=== PATIENT | female | born 1980 | race Caucasian/White ===

== ENCOUNTER → 2020-04-04 10:45 | Outpatient (BNVA) | payer OTHER, SELFPAY | PROVIDERS: Family Provider Family Medicine; PCP Family Medicine; Visit Provider Family Medicine | DX: E03.9 Hypothyroidism, unspecified (principal); R19.4 Change in bowel habit | CPT/HCPCS: 80053; 84443; 85025 ==

== ENCOUNTER 2020-04-30 07:46 | Day surgery (SDC) | payer OTHER, SELFPAY ==
[2020-04-28 16:20] LABS: Coronavirus Lab Test PTC Negative
[2020-04-30 08:00] VITALS: BP 125/87; PULSE 108; RESP 18; TEMP 36.4; O2SAT 98
[2020-04-30] MEDS: sodium chloride 0.9% 1,000 ML 30 ML IV (08:16)
--- NOTE | 2020-04-30 08:19 | ANES.PREANE2 ---
Pre-Anesthetic Assessment Pre-Anesthetic Assessment: Height/Weight: Height 1.52 m Weight 77.111 kg Temp Pulse Resp BP Pulse Ox 97.5 F L 108 H 18 125/87 98 04/30/20 08:00 04/30/20 08:00 04/30/20 08:00 04/30/20 08:00 04/30/20 08:00 Preop Diagnosis: diarrhea Proposed Procedure: Operation Date: 04/30/20 08:45 Proposed Procedures p Colonoscopy 36965 R19.4(Not Applicable) - Aung Walker MD Familial anesthetic complications: none Last intake: Intake Last Liquid Date 04/29/20 Last Liquid Time 20:00 Last Solid Date 04/28/20 Social: Social History: No alcohol and No tobacco Exam: Pre-Anes Outpt Exam: alert, oriented x 3, clear to auscultation bilaterally and regular rate & rhythm Airway: Cervical ROM: WNL MP: 3 Dentition: Full CV/HEM: CV/HEM: 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 Orders Orders: VP04/04/20 Thyroid Stimulating Znhmgwo61/06/20 Comprehensive Metabolic Panel04/04/20 Complete Blood Count w/Auto04/04/20 Surgical History H/O tubal ligation Family History Other CAD (coronary artery disease) Diabetes Thyroid condition Social History Smoking and tobacco status: never smoked Alcohol intake: never Data Anesthesia Other Labs: Laboratory Results - last 48 hr 04/26/20 13:27 Nasal/Oral COVID-19 PCR Negative Cardiac Studies: No Data to Display
--- NOTE | 2020-04-30 09:11 | W.PM.OPSUD ---
Surgery/Procedure H&P Update DATE OF PROCEDURE: April 30, 2020 DATE H&P PERFORMED: 04/22/20 H&P UPDATE INFORMATION: I have reviewed H&P completed within last 30 days, I have examined patient prior to procedure and No changes to prior documentation PREOP DIAGNOSIS: diarrhea PLANNED PROCEDURE: Operation Date: 04/30/20 08:45 Proposed Procedures p Colonoscopy 29509 R19.4(Not Applicable) - Aung Walker MD
[2020-04-30 09:38] VITALS: BP 103/69; PULSE 83; RESP 16; TEMP 36.8; O2SAT 100
--- NOTE | 2020-04-30 09:41 | ANE.PACU2 ---
Inpatient post-anesthesia follow up: Airway intact: Yes Vital signs: Temperature 97.5 F Pulse Rate 108 Respiratory Rate 18 Blood Pressure 125/87 Pulse Oximetry 98 Oxygen Delivery Me thod Room Air Oxygen Flow Rate Fraction of Inspir ed Oxygen Hydration adequate: Yes Nausea and vomiting: No Mental status: Baseline
== END 2020-04-30 10:10 | disposition home or self-care (01) ==
PROVIDERS: PCP Family Medicine; Visit Provider Surgery
PROC: 0DJD8ZZ Inspection of Lower Intestinal Tract, Via Natural or Artificial Opening Endoscopic (ICD-10-PCS; CPT 45378; principal; 2020-04-30 08:45)
DX: R19.4 Change in bowel habit (principal); K52.9 Noninfective gastroenteritis and colitis, unspecified; R01.1 Cardiac murmur, unspecified; E03.9 Hypothyroidism, unspecified
CPT/HCPCS: 12345; 45380; 82274; 83630; 87046; 87328; 87329; 87493; 87635; 88305; J2704; J7030

== ENCOUNTER → 2020-12-02 08:13 | Outpatient (BNVA) | payer OTHER, SELFPAY | PROVIDERS: PCP Family Medicine; Visit Provider Family Medicine | DX: E03.9 Hypothyroidism, unspecified (principal) | CPT/HCPCS: 84443 ==

== ENCOUNTER → 2021-06-02 08:59 | Outpatient (BNVA) | payer OTHER, SELFPAY | PROVIDERS: PCP Family Medicine; Visit Provider Family Medicine | DX: E03.9 Hypothyroidism, unspecified (principal); Z12.31 Encounter for screening mammogram for malignant neoplasm of breast; Z13.6 Encounter for screening for cardiovascular disorders | CPT/HCPCS: 80053; 80061; 84443; 85025 ==

== ENCOUNTER 2021-07-28 14:52 | Outpatient (CLI) | payer OTHER, SELFPAY ==
--- NOTE | 2021-07-28 15:00 | MM_ITS ---
WS: [id number] . BILATERAL DIGITAL SCREENING MAMMOGRAPHY WITH CAD CLINICAL INFORMATION: screening mammogram HISTORY: Screening mammogram. No current complaints. COMPARISON: None. TECHNIQUE: Bilateral CC and MLO views. FINDINGS: The breasts are composed of heterogeneous fibroglandular density tissue, which can limit the detectio n of small underlying mass lesions. Dense nodular breast tissue bilaterally. No suspicious mass, asym metry, calcifications, or architectural distortion. No evidence of malignancy. MM/[place] [id number] IMPRESSION: BI-RADS: 2-Benign FOLLOW UP: 1 Year Follow-up Recommend return to annual screening mammography.
== END 2021-07-28 14:53 | disposition home or self-care (01) ==
LOC: RADSHAW 14:55
PROVIDERS: PCP Family Medicine; Visit Provider Family Medicine
DX: Z12.31 Encounter for screening mammogram for malignant neoplasm of breast (principal)
CPT/HCPCS: 77067

== ENCOUNTER → 2022-06-09 10:21 | Outpatient (BNVA) | payer OTHER, SELFPAY | PROVIDERS: Visit Provider Family Medicine | DX: E03.9 Hypothyroidism, unspecified (principal) | CPT/HCPCS: 84443 ==

== ENCOUNTER → 2023-10-08 09:44 | Outpatient (BNVA) | payer OTHER, SELFPAY | PROVIDERS: PCP Family Medicine; Visit Provider Family Medicine | DX: Z13.6 Encounter for screening for cardiovascular disorders (principal); E03.9 Hypothyroidism, unspecified | CPT/HCPCS: 80053; 80061; 84443; 85025 ==

== ENCOUNTER 2023-10-29 08:38 | Outpatient (CLI) | payer OTHER, SELFPAY ==
--- NOTE | 2023-10-29 08:41 | MM_ITS ---
WS: [id number] BILATERAL SCREENING DIGITAL TOMOSYNTHESIS MAMMOGRAM WITH CAD HISTORY: screening COMPARISON: 07/28/2021 Bilateral CC and MLO views with tomosynthesis and synthetic mammography submitted. Computer aided det ection analyzed. Breast composition: The breasts are heterogeneously dense, which may obscure small masses. No suspici ous masses, microcalcifications or architectural distortion. IMPRESSION: MM/[place] [id number] BI-RADS: 1-Negative FOLLOW UP: 1 Year Follow-up
== END 2023-10-29 08:39 | disposition home or self-care (01) ==
LOC: RAD 08:38
PROVIDERS: PCP Family Medicine; Visit Provider Family Medicine
DX: Z12.31 Encounter for screening mammogram for malignant neoplasm of breast (principal)
CPT/HCPCS: 77063; 77067

== ENCOUNTER → 2023-12-31 10:40 | Outpatient (BNVA) | payer OTHER, SELFPAY | PROVIDERS: PCP Family Medicine; Visit Provider Family Medicine | DX: D50.9 Iron deficiency anemia, unspecified (principal); N92.0 Excessive and frequent menstruation with regular cycle | CPT/HCPCS: 82728; 83550; 85025 ==

== ENCOUNTER → 2024-01-07 11:02 | Outpatient (BNVA) | payer OTHER, SELFPAY | PROVIDERS: PCP Family Medicine; Visit Provider Family Medicine | DX: Z01.419 Encounter for gynecological examination (general) (routine) without abnormal findings (principal) | CPT/HCPCS: 87624 ==

== ENCOUNTER 2024-01-18 07:26 | Outpatient (CLI) | payer OTHER, SELFPAY ==
--- NOTE | 2024-01-18 07:45 | US_ITS ---
WS: [id number] US transvaginal [id number] HISTORY: menorrhagia COMPARISON: None available. Uterus: 8.0 cm x 5.5 cm x 4.9 cm. Anteverted uterus. No mass identified. The myometrium is not well visualized due to technique. Endometrium: 1.8 cm. Enlarged mildly heterogeneous endometrium. The junctional zone is poorly visuali zed. This is probably technical. No increased vascularity. Right ovary: 3.0 cm x 1.5 cm x 2.7 cm. Small follicles. Normal vascularity. Left ovary: 2.8 cm x 3.5 cm x 2.3 cm. Ovary slightly enlarged. There is a collapsing corpus luteum me asuring 2.2 x 1.3 x 2.2 cm. There is an additional smaller follicle measuring 1.9 x 1.6 x 1.4 cm. No solid mass. No free fluid in the cul-de-sac. US/US transvaginal [id number] IMPRESSION: 1. Technically difficult and limited evaluation of the pelvic structures. 2. Heterogeneous myometrium. No mass identified. 3. Enlarged endometrium at 1.8 cm. Junctional zone is not evident there is no evidence for adenomyosis by ultrasound. Recommend short-term interval follow-up of the endometrium versus direct visualization and biopsy. No mass identified. Consider hyperplasia.
== END 2024-01-18 07:27 | disposition home or self-care (01) ==
LOC: RAD 07:26
PROVIDERS: PCP Family Medicine; Visit Provider Family Medicine
DX: N92.0 Excessive and frequent menstruation with regular cycle (principal); N85.8 Other specified noninflammatory disorders of uterus; N85.00 Endometrial hyperplasia, unspecified
CPT/HCPCS: 76830

== ENCOUNTER → 2024-06-12 14:53 | Outpatient (BNVA) | payer OTHER, SELFPAY | DX: E03.9 Hypothyroidism, unspecified (principal) | CPT/HCPCS: 80053; 84439; 84443 ==

== ENCOUNTER → 2024-09-25 10:50 | Outpatient (BNVA) | payer OTHER, SELFPAY | PROVIDERS: Visit Provider Emergency Medicine | DX: J02.9 Acute pharyngitis, unspecified (principal) | CPT/HCPCS: 87880 ==

== ENCOUNTER 2025-08-09 07:46 | Outpatient (CLI) | payer SELFPAY ==
[2025-08-09 08:44] LABS: HF Add Manual Diff No
[2025-08-09 08:47] LABS: Hematocrit 36.5 % (36-47); Hemoglobin 11.40 g/dL (11.27-16.99); Mean Corpuscular HGB Conc 31.2 g/dL (30-55); Mean Corpuscular Hemoglobin 26.7 pg (27-33); Mean Corpuscular Volume 85.5 fl (85-98); Nucleated Red Blood Cells % 0 %; Platelet Count 450 10^3/cmm (157-399); Red Blood Count 4.27 10^6/uL (3.85-5.65); White Blood Count 7.54 10^3/uL (3.29-11.43)
[2025-08-09 09:24] LABS: Estmated Average Glucose 91; Hemoglobin A1C 4.8 % (4.0-6.0)
[2025-08-09 09:36] LABS: Alanine Aminotransferase 11 U/L (0-33); Albumin Level 3.9 g/dL (3.5-5.2); Alkaline Phosphatase 95 U/L (35-105); Anion Gap 15.0 (5-19); Aspartate Amino Transferase 11 U/L (0-32); Blood Urea Nitrogen 9 mg/dL (6-20); Calcium 8.9 mg/dL (8.5-10.5); Carbon Dioxide 23 mmol/L (22-29); Chloride 108 mmol/L (98-107); Cholesterol 146 mg/dL (0-200); Globulin 3.0 g/dL (1.3-4.6); Glucose 121 mg/dL (65-115); HDL Cholesterol 31 mg/dL (60-100); Osmolality Calculated 294 mOsm/kg (285-295); Potassium 4.0 mmol/L (3.5-5.1); Sodium 142 mmol/L (136-145); Thyroid Stimulating Hormone 4.32 uIU/mL (0.27-4.20); Total Protein 6.9 g/dL (6.6-8.7); Triglycerides 182 mg/dL (0-150)
== END 2025-08-09 07:47 | disposition home or self-care (01) ==
PROVIDERS: Visit Provider Dermatology
DX: Z01.89 Encounter for other specified special examinations (principal)
CPT/HCPCS: 36415